=== PATIENT | male | born 1985 | race Caucasian/White ===

== ENCOUNTER 2017-12-23 17:50 | Emergency (ER) | payer OTHER ==
[~2017-12-23] VITALS: Ht 185.4 cm; Wt 90.0 kg
--- NOTE | 2017-12-23 17:58 | ED.ADGEN ---
Past History Past Surgical History: Other Alcohol Use: Occasionally Drug Use: Other Adult General Chief Complaint Chief Complaint "...I ve been having some rectal bleeding... all week... and now I ve been vomiting the last few days... I just moved here from [place]... 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 No history of colitis or Crohn's with himself or family members. No history of trauma. No history of specific ill contacts. Was in [facility] in June. Patient normally healthy. No history of bad food intake. No history of rectal sex. Has had episodes of constipation earlier in the week. Review of Systems Review of Systems Constitutional: Denies fever or chills [] Eyes: Denies change in visual acuity, redness, or eye pain [] HENT: Denies nasal congestion or sore throat [] Respiratory: Denies cough or shortness of breath [] Cardiovascular: No additional information not addressed in HPI [] GI: Denies abdominal pain, nausea, vomiting, diarrhea []complaints of blood in his stool when he wipes : Denies dysuria or hematuria [] Musculoskeletal: Denies back pain or joint pain [] Integument: Denies rash or skin lesions [] Neurologic: Denies headache, focal weakness or sensory changes [] Endocrine: Denies polyuria or polydipsia [] All other systems were reviewed and found to be within normal limits, except as documented in this note. Family History Family History Noncontributory Current Medications Current Medications Current Medications Medications (Trade) Dose Ordered Sig/Burak Start Time Stop Time Status Last Admin Dose Admin Famotidine (Pepcid Vial) 20 mg 1X ONCE 12/23/17 18:45 12/23/17 18:46 DC 12/23/17 18:39 20 MG Ketorolac Tromethamine (Toradol 30mg Vial) 30 mg 1X ONCE 12/23/17 18:45 12/23/17 18:46 DC 12/23/17 18:39 30 MG Lactated Ringer's 1,000 ml @ 1,000 mls/hr Q1H 12/23/17 18:23 12/23/17 19:22 DC 12/23/17 18:38 1,000 MLS/HR Magnesium Hydroxide (Milk Of Magnesia) 2,400 mg 1X ONCE 12/23/17 18:45 12/23/17 18:46 DC 12/23/17 18:38 2,400 MG Ondansetron HCl (Zofran) 8 mg 1X ONCE 12/23/17 18:45 12/23/17 18:46 DC 12/23/17 18:39 8 MG Allergies Allergies Allergies Coded Allergies Type Severity Reaction Last Updated Verified No Known Drug Allergies 12/23/17 No Physical Exam Physical Exam Constitutional: Well developed, well nourished, no acute distress, non-toxic appearance. [] HENT: Normocephalic, atraumatic, bilateral external ears normal, oropharynx dry , no oral exudates, nose normal. [] Eyes: PERRLA, EOMI, conjunctiva normal, no discharge. [] Neck: Normal range of motion, no tenderness, supple, no stridor. [] Cardiovascular:Heart rate regular rhythm, no murmur [] Lungs & Thorax: Bilateral breath sounds clear to auscultation [] Abdomen: Bowel sounds normal, soft, no tenderness, no masses, no pulsatile masses. [] Has small hemorrhoids. Trace bright red rectal bleeding on digital exam. Skin: Warm, dry, no erythema, no rash. [] Back: No tenderness, no CVA tenderness. [] Extremities: No tenderness, no cyanosis, no clubbing, ROM intact, no edema. [] No psoas or obturator sign. Neurologic: Alert and oriented X 3, normal motor function, normal sensory function, no focal deficits noted. [] Psychologic: Affect anxious, judgement normal, mood normal. [] Current Patient Data Vital Signs Vital Signs Date Time Temp Pulse Resp B/P (MAP) Pulse Ox O2 Delivery O2 Flow Rate FiO2 12/23/17 20:22 65 112/45 (67) 95 12/23/17 18:35 18 12/23/17 18:02 98.1 Room Air Lab Results Laboratory Tests Test 12/23/17 18:30 White Blood Count 9.2 x10^3/uL (4.0-11.0) Red Blood Count 4.77 x10^6/uL (4.30-5.70) Hemoglobin 14.8 g/dL (13.0-17.5) Hematocrit 43.6 % (39.0-53.0) Mean Corpuscular Volume 92 fL (79-100) Mean Corpuscular Hemoglobin 31 pg (25-35) Mean Corpuscular Hemoglobin Concent 34 g/dL (31-37) Red Cell Distribution Width 12.9 % (11.5-14.5) Platelet Count 332 x10^3/uL (140-400) Neutrophils (%) (Auto) 64 % (31-73) Lymphocytes (%) (Auto) 27 % (24-48) Monocytes (%) (Auto) 8 % (0-9) Eosinophils (%) (Auto) 1 % (0-3) Basophils (%) (Auto) 1 % (0-3) Neutrophils # (Auto) 5.9 x10^3uL (1.8-7.7) Lymphocytes # (Auto) 2.5 x10^3/uL (1.0-4.8) Monocytes # (Auto) 0.7 x10^3/uL (0.0-1.1) Eosinophils # (Auto) 0.1 x10^3/uL (0.0-0.7) Basophils # (Auto) 0.1 x10^3/uL (0.0-0.2) Prothrombin Time 9.4 SEC (9.4-11.4) Prothrombin Time INR 0.9 (0.9-1.1) PTT 27 SEC (23-33) Sodium Level 141 mmol/L (136-145) Potassium Level 3.8 mmol/L (3.5-5.1) Chloride Level 104 mmol/L (98-107) Carbon Dioxide Level 31 mmol/L (21-32) Anion Gap 6 (6-14) Blood Urea Nitrogen 11 mg/dL (8-26) Creatinine 1.3 mg/dL (0.7-1.3) Estimated GFR (Cockcroft-Gault) 63.2 Glucose Level 91 mg/dL (70-99) Calcium Level 8.6 mg/dL (8.5-10.1) Total Bilirubin 0.4 mg/dL (0.2-1.0) Direct Bilirubin 0.1 mg/dL (0.0-0.2) Aspartate Amino Transferase (AST) 19 U/L (15-37) Alanine Aminotransferase (ALT) 40 U/L (16-63) Alkaline Phosphatase 69 U/L (46-116) Total Protein 7.4 g/dL (6.4-8.2) Albumin 3.8 g/dL (3.4-5.0) Amylase Level 51 U/L (25-115) Lipase 145 U/L (73-393) EKG EKG [] Radiology/Procedures Radiology/Procedures My interpretation of abdomen shows no free air in the diaphragm. No acute findings and cardiopulmonary areas. Nonspecific bowel gas pattern. Does have some isolated bowel loops in right mid abdomen Course & Med Decision Making Course & Med Decision Making Pertinent Labs and Imaging studies reviewed. (See chart for details). Patient remain on a clear fluid diet only for the next 48 hours. No solid or milk products. Allow bowel rest. Use at bedtime see Anusol suppositories and dibucaine as needed for rectal discomfort. Sitz baths. Follow-up primary care. Recommend colonoscopy. Return if any concerns. [] Final Impression Final Impression 1. Out let rectal bleeding[] 2. Small hemorrhoids Dragon Disclaimer Dragon Disclaimer This electronic medical record was generated, in whole or in part, using a voice recognition dictation system. BALWINDER RIVAS MD Dec 23, 2017 17:58
[2017-12-23] MEDS ORDERED: IV RINGERS SOLUTION,LACTATED 1,000 ML IV SCH (18:23)
[2017-12-23] MEDS ORDERED: ONDA8TAB12 PO (18:31)
[2017-12-23] MEDS ORDERED: ACET500T68 PO (18:31)
[2017-12-23] MEDS ORDERED: RANI75TA12 PO (18:31)
[2017-12-23] MEDS ORDERED: DIBU28OI RC (18:34)
[2017-12-23] MEDS ORDERED: HYDR25SU18 RC (18:34)
[2017-12-23] MEDS ORDERED: MAGNESIUM HYDROXIDE 2,400 MG/30 ML ORAL.SUSP. PO ONE (18:45)
[2017-12-23] MEDS ORDERED: FAMOTIDINE 20 MG/2 ML VIAL IVP ONE (18:45)
[2017-12-23] MEDS ORDERED: ONDANSETRON PF 4 MG/2 ML VIAL. IV ONE (18:45)
[2017-12-23] MEDS ORDERED: KETOROLAC 30 MG/ML VIAL. IV ONE (18:45)
[2017-12-23 18:48] LABS: BASO # 0.1 x10^3/uL (0.0-0.2); BASO % 1 % (0-3); EOS # 0.1 x10^3/uL (0.0-0.7); EOS % 1 % (0-3); HEMATOCRIT 43.6 % (39.0-53.0); HEMOGLOBIN 14.8 g/dL (13.0-17.5); LYMPH # 2.5 x10^3/uL (1.0-4.8); LYMPH % 27 % (24-48); MEAN CORPUSCULAR HEMOGLOBIN 31 pg (25-35); MEAN CORPUSCULAR HGB CONC 34 g/dL (31-37); MEAN CORPUSCULAR VOLUME 92 fL (79-100); MONO # 0.7 x10^3/uL (0.0-1.1); MONO % 8 % (0-9); NEUT # 5.9 x10^3uL (1.8-7.7); NEUT % 64 % (31-73); PLATELET COUNT 332 x10^3/uL (140-400); RED BLOOD COUNT 4.77 x10^6/uL (4.30-5.70); RED CELL DISTRIBUTION WIDTH 12.9 % (11.5-14.5); WHITE BLOOD COUNT 9.2 x10^3/uL (4.0-11.0)
[2017-12-23 19:03] LABS: ALBUMIN 3.8 g/dL (3.4-5.0); CALCIUM 8.6 mg/dL (8.5-10.1); CREATININE 1.3 mg/dL (0.7-1.3); DIRECT BILIRUBIN 0.1 mg/dL (0.0-0.2); GFR 63.2; POTASSIUM 3.8 mmol/L (3.5-5.1); TOTAL BILIRUBIN 0.4 mg/dL (0.2-1.0); TOTAL PROTEIN 7.4 g/dL (6.4-8.2)
[2017-12-23 20:22] VITALS: BP 112/45
--- NOTE | 2017-12-24 08:49 | RAD ---
Acute abdominal series with single view chest 12/23/2017 6:23 PM INDICATION: Abdominal tenderness and bloating COMPARISON: None available TECHNIQUE: Multiple view of the chest, upright view of the abdomen and 2 supine views of abdomen are provided. FINDINGS: The cardiomediastinal silhouette is within normal limits. There are no pleural effusions. There is no pulmonary vascular congestion. There is no pneumothorax. The lungs are clear. No significant osseous abnormality is identified. There is no free intraperitoneal air. There is no organomegaly. There are no dilated loops of small or large bowel. No differential air-fluid levels are identified. No suspicious calcifications are identified. IMPRESSION: No acute cardiopulmonary process. Nonobstructive bowel gas pattern. Electronically signed by: Candace Augustin MD (12/24/2017 8:46 AM) [facility]
== END 2017-12-23 20:27 | disposition home or self-care (01) ==
LOC: ER 17:50
DX: K64.9 Unspecified hemorrhoids (principal); K62.5 Hemorrhage of anus and rectum; R11.2 Nausea with vomiting, unspecified
CPT/HCPCS: 36415; 74022; 80048; 80076; 82150; 83690; 85025; 85610; 85730; 96361; 96374; 96375; 99285; J1885; J2405; J7120; S0028

== ENCOUNTER 2018-01-28 15:00 | Emergency (ER) | payer OTHER ==
[~2018-01-28] VITALS: Ht 182.9 cm; Wt 90.7 kg
[~2018-01-28 15:00] MED LIST: ACET500T68 PO; DIBU28OI RC; HYDR25SU18 RC; ONDA8TAB12 PO; RANI75TA12 PO
--- NOTE | 2018-01-28 15:24 | EKG ---
[address] [address] Test Date: 2018-01-28 Test Time: 15:05:31 Pat Name: ANDRIY NAVA Department: Room: Gender: M Anaesthetic Technician: : 1985 Requested By: ISMAEL ARGUETA Order Number: [id number] Reading MD: Tyler Gonzáles MD Measurements Intervals [place] Rate: 63 P: 34 RI: 134 QRS: 38 QRSD: 90 T: 23 QT: 392 QTc: 404 Interpretive Statements SINUS RHYTHM Electronically Signed On 01-29-2018 13:48:27 CDT by Tyelr Gonzáles MD
[2018-01-28 15:27] LABS: BASO # 0.1 x10^3/uL (0.0-0.2); BASO % 1 % (0-3); EOS % 0 % (0-3); HEMATOCRIT 43.5 % (39.0-53.0); HEMOGLOBIN 15.1 g/dL (13.0-17.5); LYMPH # 2.3 x10^3/uL (1.0-4.8); LYMPH % 24 % (24-48); MEAN CORPUSCULAR HEMOGLOBIN 32 pg (25-35); MEAN CORPUSCULAR HGB CONC 35 g/dL (31-37); MEAN CORPUSCULAR VOLUME 91 fL (79-100); MONO # 0.7 x10^3/uL (0.0-1.1); MONO % 7 % (0-9); NEUT # 6.6 x10^3uL (1.8-7.7); NEUT % 68 % (31-73); PLATELET COUNT 357 x10^3/uL (140-400); RED BLOOD COUNT 4.77 x10^6/uL (4.30-5.70); RED CELL DISTRIBUTION WIDTH 12.6 % (11.5-14.5); WHITE BLOOD COUNT 9.7 x10^3/uL (4.0-11.0)
[2018-01-28] MEDS ORDERED: IV NORMAL SALINE 1,000ML 1,000 ML IV ONE (15:30)
[2018-01-28 15:41] LABS: ALBUMIN 4.1 g/dL (3.4-5.0); ALBUMIN/GLOBULIN RATIO 1.1 (1.0-1.7); CREATININE 1.4 mg/dL (0.7-1.3); POTASSIUM 3.8 mmol/L (3.5-5.1); TOTAL BILIRUBIN 0.5 mg/dL (0.2-1.0); TOTAL PROTEIN 7.7 g/dL (6.4-8.2)
--- NOTE | 2018-01-28 15:41 | RAD ---
CHEST PA LATERAL dated 01/28/2018 3:31 PM. Comparison: None. Clinical Indication: CHEST PAIN. Findings: PA and lateral views of the chest were obtained. Heart and mediastinal contours within normal limits. Lungs are clear without focal consolidation. Vascular interstitium within normal limits. No pleural effusion or pneumothorax. Impression: No acute radiographic abnormality. Electronically signed by: Raheem Langley MD (01/28/2018 3:37 PM) [facility]
[2018-01-28] MEDS ORDERED: KETOROLAC 30 MG/ML VIAL. IV ONE (16:00)
[2018-01-28 16:20] VITALS: BP 122/70
--- NOTE | 2018-01-28 16:49 | PHYS DOC ---
Past History Past Medical History: No Pertinent History Past Surgical History: No Surgical History Smoking: Non-smoker Alcohol Use: Occasionally Drug Use: None Adult General Chief Complaint Chief Complaint: CHEST PAIN HPI HPI Patient is a 32 year old male who presents with complaining of chest pain that started about 10 minute prior to arrival to ER as a pressure feeling in substernal area with radiation to his back and neck without shortness of breath , nausea, palpitation, fever and chills, cough and congestion. Patient states he is under lots of stress since last night. Patient denies any cardiac risk factor except for history of coronary artery disease. Patient rated his pain 3/ 10. Patient had recent gastroenteritis that resolved. Review of Systems Review of Systems Constitutional: Denies fever or chills [] Eyes: Denies change in visual acuity, redness, or eye pain [] HENT: Denies nasal congestion or sore throat [] Respiratory: Denies cough or shortness of breath [] Cardiovascular: No additional information not addressed in HPI [] GI: Denies abdominal pain, nausea, vomiting, bloody stools or diarrhea [] : Denies dysuria or hematuria [] Musculoskeletal: Denies back pain or joint pain [] Integument: Denies rash or skin lesions [] Neurologic: Denies headache, focal weakness or sensory changes [] Endocrine: Denies polyuria or polydipsia [] All other systems were reviewed and found to be within normal limits, except as documented in this note. Current Medications Current Medications Current Medications Medications (Trade) Dose Ordered Sig/Burak Start Time Stop Time Status Last Admin Dose Admin Ketorolac Tromethamine (Toradol 30mg Vial) 30 mg 1X ONCE 01/28/18 16:00 01/28/18 16:01 DC Sodium Chloride 1,000 ml @ 1,000 mls/hr 1X ONCE 01/28/18 15:30 01/28/18 16:29 DC 01/28/18 15:39 1,000 MLS/HR Allergies Allergies Allergies Coded Allergies Type Severity Reaction Last Updated Verified No Known Drug Allergies 12/23/17 No Physical Exam Physical Exam Constitutional: Well developed, well nourished, mild distress, non-toxic appearance. [] HENT: Normocephalic, atraumatic, oropharynx moist, no oral exudates, nose normal. [] Eyes: PERRLA, EOMI, conjunctiva normal, no discharge. [] Neck: Normal range of motion, no tenderness, supple, no stridor. [] Cardiovascular:Heart rate regular rhythm, no murmur [] Lungs & Thorax: Bilateral breath sounds clear to auscultation [] Abdomen: Bowel sounds normal, soft, no tenderness, no masses, no pulsatile masses. [] Skin: Warm, dry, no erythema, no rash. [] Back: No tenderness, no CVA tenderness. [] Extremities: No tenderness, no cyanosis, no clubbing, ROM intact, no edema. [] Neurologic: Alert and oriented X 3, normal motor function, normal sensory function, no focal deficits noted. [] Psychologic: Affect normal, judgement normal, mood normal. [] Current Patient Data Vital Signs Vital Signs Date Time Temp Pulse Resp B/P (MAP) Pulse Ox O2 Delivery O2 Flow Rate FiO2 01/28/18 15:00 98.4 67 18 95 Room Air Lab Results Laboratory Tests Test 01/28/18 15:13 White Blood Count 9.7 x10^3/uL (4.0-11.0) Red Blood Count 4.77 x10^6/uL (4.30-5.70) Hemoglobin 15.1 g/dL (13.0-17.5) Hematocrit 43.5 % (39.0-53.0) Mean Corpuscular Volume 91 fL (79-100) Mean Corpuscular Hemoglobin 32 pg (25-35) Mean Corpuscular Hemoglobin Concent 35 g/dL (31-37) Red Cell Distribution Width 12.6 % (11.5-14.5) Platelet Count 357 x10^3/uL (140-400) Neutrophils (%) (Auto) 68 % (31-73) Lymphocytes (%) (Auto) 24 % (24-48) Monocytes (%) (Auto) 7 % (0-9) Eosinophils (%) (Auto) 0 % (0-3) Basophils (%) (Auto) 1 % (0-3) Neutrophils # (Auto) 6.6 x10^3uL (1.8-7.7) Lymphocytes # (Auto) 2.3 x10^3/uL (1.0-4.8) Monocytes # (Auto) 0.7 x10^3/uL (0.0-1.1) Eosinophils # (Auto) 0.0 x10^3/uL (0.0-0.7) Basophils # (Auto) 0.1 x10^3/uL (0.0-0.2) Sodium Level 142 mmol/L (136-145) Potassium Level 3.8 mmol/L (3.5-5.1) Chloride Level 104 mmol/L (98-107) Carbon Dioxide Level 28 mmol/L (21-32) Anion Gap 10 (6-14) Blood Urea Nitrogen 10 mg/dL (8-26) Creatinine 1.4 mg/dL (0.7-1.3) H Estimated GFR (Cockcroft-Gault) 58.0 BUN/Creatinine Ratio 7 (6-20) Glucose Level 105 mg/dL (70-99) H Calcium Level 9.0 mg/dL (8.5-10.1) Magnesium Level 2.0 mg/dL (1.8-2.4) Total Bilirubin 0.5 mg/dL (0.2-1.0) Aspartate Amino Transferase (AST) 14 U/L (15-37) L Alanine Aminotransferase (ALT) 29 U/L (16-63) Alkaline Phosphatase 66 U/L (46-116) Creatine Kinase 144 U/L (39-308) Troponin I Quantitative < 0.017 ng/mL (0-0.055) Total Protein 7.7 g/dL (6.4-8.2) Albumin 4.1 g/dL (3.4-5.0) Albumin/Globulin Ratio 1.1 (1.0-1.7) EKG EKG EKG interpreted by me. EKG at 1505 showed normal sinus rhythm at rate of 63, no acute ST and T-wave abnormalities. Radiology/Procedures Radiology/Procedures [address] [address] IMAGING REPORT Signed PATIENT: ANDRIY NAVA ACCOUNT: [id number] : 1985 LOCATION: ER AGE: 32 SEX: M EXAM STATUS: REG ER ORD. PHYSICIAN: ISMAEL ARGUETA MD REASON: chest pain PROCEDURE: CHEST PA & LATERAL CHEST PA LATERAL dated 01/28/2018 3:31 PM. Comparison: None. Clinical Indication: CHEST PAIN. Findings: PA and lateral views of the chest were obtained. Heart and mediastinal contours within normal limits. Lungs are clear without focal consolidation. Vascular interstitium within normal limits. No pleural effusion or pneumothorax. Impression: No acute radiographic abnormality. Electronically signed by: Raheem Langley MD (01/28/2018 3:37 PM) [facility] DICTATED AND SIGNED BY: RAHEEM LANGLEY MD DATE: 01/28/18 1537 CC: ISMAEL ARGUETA MD; PCP,UNKNOWN ~ Course & Med Decision Making Course & Med Decision Making Pertinent Labs and Imaging studies reviewed. (See chart for details) Evaluation of patient in ER showed 32-year-old male patient with complaining of chest pain. Patient had recent stress. Patient had unremarkable physical exam and labs and EKG except for mild elevation of creatinine because of recent gastroenteritis. Patient treated with IV fluid and his pain resolved. Patient instructed to follow with his primary care physician and avoid of stress. Dragon Disclaimer Dragon Disclaimer This electronic medical record was generated, in whole or in part, using a voice recognition dictation system. Departure Departure: Impression: Primary Impression: Chest pain due to psychological stress Additional Impression: Dehydration Disposition: 01 HOME, SELF-CARE (at 1647) Condition: IMPROVED Referrals: PCP,UNKNOWN (PCP) Patient Instructions: Anxiety and Panic Attacks, Chest Pain (Nonspecific), Dehydration, Adult, Stress Additional Instructions: Drink plenty of liquids Follow-up with your primary care physician in 3-5 days Return to ER if not getting better Problem Qualifiers ISMAEL ARGUETA MD Jan 28, 2018 16:48
== END 2018-01-28 16:50 | disposition home or self-care (01) ==
LOC: ER 15:00
DX: R07.89 Other chest pain (principal); F43.9 Reaction to severe stress, unspecified; E86.0 Dehydration
CPT/HCPCS: 36415; 71046; 80053; 82550; 83735; 84484; 85025; 93005; 96360; 99285-25; J7030